=== PATIENT | female | born 1980 | race Caucasian/White ===

== ENCOUNTER 2022-10-28 16:13 | Emergency (ER) | payer OTHER ==
[~2022-10-28] VITALS: Ht 162.6 cm; Wt 127.9 kg
[2022-10-28 16:37] VITALS: BP 113/64
[2022-10-28] MEDS ORDERED: SODI1PAC10 NS (17:00)
[2022-10-28] MEDS ORDERED: [UNRECOGNIZED DRUG - CODE] PO (17:00)
[2022-10-28] MEDS ORDERED: BENZ-300 PO (17:00)
[2022-10-28 17:58] VITALS: BP 140/88
--- NOTE | 2022-10-28 17:58 | NUR ---
Patient discharged with v/s stable. Written and verbal after care instructions given. Patient alert, oriented and verbalized understanding of instructions. Ambulatory with steady gait. All questions addressed prior to discharge. ID band removed. Patient advised to follow up with PMD. Rx of Cepacol Sore Thorat Lozenges, Pseudoephedrine HCL and Sinus Wash Kettle Netti Pit Kit given. Opportunity to ask questions provided and answered. WORK NOTE HANDED TO PATIENT.
== END 2022-10-28 17:58 | disposition home or self-care (01) ==
LOC: MED 16:13
DX: J32.9 Chronic sinusitis, unspecified (principal); R51.9 Headache, unspecified; J02.8 Acute pharyngitis due to other specified organisms; B97.89 Other viral agents as the cause of diseases classified elsewhere; H92.09 Otalgia, unspecified ear; E11.9 Type 2 diabetes mellitus without complications; Z79.899 Other long term (current) drug therapy
CPT/HCPCS: 87081; 99283